=== PATIENT | female | born 1940 | race Two or more races ===

== ENCOUNTER 2018-02-14 14:03 | Inpatient (IN) | payer MEDICARE ==
[2018-02-14 14:11] VITALS: BMI 20.7
[2018-02-14] MEDS ORDERED: oxyCODONE 5 mg Immediate Release Tab PO PRN (20:47)
[2018-02-14] MEDS ORDERED: Benzocaine/Menthol (Cepacol) Lozenge PO PRN (20:47)
[2018-02-15 06:21] LABS: HEMOGLOBIN 11.8 g/dL (12.0-16.0); MEAN CELL VOLUME 96.1 fl (81.0-99.0); MEAN CORPUSCULAR HEMOGLOBIN 31.1 pg (27.0-31.0); MEAN CORPUSCULAR HGB CONC 32.4 g/dL (33.0-37.0); RBC 3.8 Mil/uL (3.80-5.20); RED CELL DISTRIBUTION WIDTH 14.2 % (11.5-14.5); WHITE BLOOD COUNT 4.1 K/uL (4.8-10.8)
[2018-02-15 06:25] LABS: BLOOD UREA NITROGEN 21 mg/dl (7-17); CALCIUM 8.9 mg/dL (8.4-10.2); GFR NON-AFRICAN AMERICAN > 60
[2018-02-15] MEDS: Lidocaine 5% Patch TD SCH (06:42)
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
[2018-02-15] MEDS: Pantoprazole 40 mg EC Tab PO SCH (08:23)
[2018-02-15] MEDS ORDERED: NIFEdipine 30 mg ER Tab PO SCH (09:00)
[2018-02-15] MEDS ORDERED: Enoxaparin 30 mg Syringe SC SCH (09:00)
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
[2018-02-15] MEDS: Enoxaparin 40 mg Syringe SC SCH (12:48)
[2018-02-15] MEDS: POLYETHYLENE GLYCOL 3350 17 GM/Dose PACKET PO SCH (12:49)
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
--- NOTE | 2018-02-15 13:15 | PCM.OPOC ---
Physiatry Overall Plan of Care - Overall Plan of Care Estimated Length of Stay in Weeks: 2 Rehab Impairment: Mobility, Gait, Balance, Coordination Etiologic Diagnosis: Other Rehab/Medical Prognosis: Fair - Anticipated Interventions Physical Therapy:: Yes Occupational Therapy:: Yes Recreational Therapy:: Yes - Therapy Goals Bed Mobility: Independent Ambulation: Supervision Functional Positional Changes:: Independent - Functional Outcomes Functional Outcomes: fair - Discharge Plan Identification of Barriers to Discharge: Home Situation Discharge Destination: Home
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
--- NOTE | 2018-02-15 17:00 | CARD ---
APPROVED REPORT Date of service: 02/15/2018 EKG Measurement Heart [id number] <Conclusion> Sinus rhythm with 1st degree AV block with premature atrial complexes Otherwise normal ECG
[2018-02-16] MEDS: Lidocaine 5% Patch TD SCH (06:57)
[2018-02-16] MEDS: POLYETHYLENE GLYCOL 3350 17 GM/Dose PACKET PO SCH (09:03)
[2018-02-16] MEDS: Enoxaparin 40 mg Syringe SC SCH (09:03)
[2018-02-16] MEDS: Pantoprazole 40 mg EC Tab PO SCH (09:04)
[2018-02-16] MEDS ORDERED: Loratadine 5 MG/5 ML ORAL SYRUP PO ONE (17:30)
[2018-02-17] MEDS: Lidocaine 5% Patch TD SCH (06:33)
[2018-02-17] MEDS: Enoxaparin 40 mg Syringe SC SCH (08:33)
[2018-02-17] MEDS: POLYETHYLENE GLYCOL 3350 17 GM/Dose PACKET PO SCH (08:34)
[2018-02-17] MEDS: Pantoprazole 40 mg EC Tab PO SCH (08:37)
[2018-02-17] MEDS: Loratadine 5 MG/5 ML ORAL SYRUP PO SCH (13:02)
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
[2018-02-18] MEDS: Lidocaine 5% Patch TD SCH (07:00)
[2018-02-18 07:10] LABS: HEMOGLOBIN 11.5 g/dL (12.0-16.0); MEAN CORPUSCULAR HEMOGLOBIN 31.8 pg (27.0-31.0); MEAN CORPUSCULAR HGB CONC 32.8 g/dL (33.0-37.0); RBC 3.63 Mil/uL (3.80-5.20); RED CELL DISTRIBUTION WIDTH 14.2 % (11.5-14.5); WHITE BLOOD COUNT 4.1 K/uL (4.8-10.8)
[2018-02-18 07:22] LABS: BLOOD UREA NITROGEN 16 mg/dl (7-17); CALCIUM 8.9 mg/dL (8.4-10.2); GFR NON-AFRICAN AMERICAN > 60
[2018-02-18] MEDS: Enoxaparin 40 mg Syringe SC SCH (08:41)
[2018-02-18] MEDS: Pantoprazole 40 mg EC Tab PO SCH (08:42)
[2018-02-18] MEDS: POLYETHYLENE GLYCOL 3350 17 GM/Dose PACKET PO SCH (08:42)
[2018-02-18] MEDS: Loratadine 5 MG/5 ML ORAL SYRUP PO SCH ×2 (10:00→10:16)
[2018-02-19] MEDS: Lidocaine 5% Patch TD SCH (06:38)
[2018-02-19] MEDS: Pantoprazole 40 mg EC Tab PO SCH (08:29)
[2018-02-19] MEDS: Loratadine 5 MG/5 ML ORAL SYRUP PO SCH (08:30)
[2018-02-19] MEDS: POLYETHYLENE GLYCOL 3350 17 GM/Dose PACKET PO SCH (08:31)
[2018-02-19] MEDS: Enoxaparin 40 mg Syringe SC SCH (08:31)
--- NOTE | 2018-02-19 20:32 | CP.PCM.PN ---
Subjective - Date & Time of Evaluation Date of Evaluation: 02/17/18 Time of Evaluation: 18:10 - Subjective Subjective: patient with no acute complaints at present Objective - Vital Signs/Intake and Output Vital Signs (last 24 hours): Temp Pulse Resp BP Pulse Ox 97.9 F 66 19 151/100 H 99 02/19/18 09:48 02/19/18 09:48 02/19/18 09:48 02/19/18 09:48 02/19/18 09:48 - Medications Medications: Current Medications Acetaminophen (Tylenol 325mg Tab) 325 mg PO Q4 PRN PRN Reason: Pain, moderate (4-7) Last Admin: 02/19/18 13:34 Dose: 325 mg Acetaminophen (Tylenol 325mg Tab) 650 mg PO Q4 PRN PRN Reason: Pain, severe (8-10) Last Admin: 02/18/18 08:45 Dose: 650 mg Benzocaine/Menthol (Cepacol Sore Throat) 1 wilbert PO Q6 PRN PRN Reason: Sore Throat Calcium Carbonate (Oscal) 1,000 mg PO BID [facility] Last Admin: 02/19/18 17:28 Dose: 1,000 mg Docusate Sodium (Colace) 100 mg PO BID [facility] Last Admin: 02/19/18 17:28 Dose: 100 mg Enoxaparin Sodium (Lovenox) 40 mg SC DAILY [facility]; Protocol Last Admin: 02/19/18 08:31 Dose: 40 mg Lidocaine (Lidoderm) 2 ea TD DAILY@0700 [facility] Last Admin: 02/19/18 06:38 Dose: 2 ea Loratadine (Claritin Oral Soln 1mg/Ml) 10 mg PO DAILY [facility] Last Admin: 02/19/18 08:30 Dose: 10 mg Metoprolol Tartrate (Lopressor) 12.5 mg PO Q12 [facility] Last Admin: 02/19/18 08:29 Dose: 12.5 mg Pantoprazole Sodium (Protonix Ec Tab) 40 mg PO DAILY [facility] Last Admin: 02/19/18 08:29 Dose: 40 mg Polyethylene Glycol (Miralax) 17 gm PO DAILY [facility] Last Admin: 02/19/18 08:31 Dose: Not Given - Labs Labs: 02/18/18 05:30 02/18/18 05:30 - Constitutional Appears: Well - Head Exam Head Exam: ATRAUMATIC, NORMAL INSPECTION, NORMOCEPHALIC - Eye Exam Eye Exam: EOMI, Normal appearance Pupil Exam: NORMAL ACCOMODATION, PERRL - ENT Exam ENT Exam: Mucous Membranes Moist, Normal Exam - Neck Exam Neck Exam: Full ROM, Normal Inspection - Respiratory Exam Respiratory Exam: Clear to Ausculation Bilateral - Cardiovascular Exam Cardiovascular Exam: REGULAR RHYTHM - GI/Abdominal Exam GI & Abdominal Exam: Soft, Normal Bowel Sounds - Rectal Exam Rectal Exam: NORMAL INSPECTION - Exam External exam: NORMAL EXTERNAL EXAM - Extremities Exam Extremities Exam: Full ROM, Normal Capillary Refill, Normal Inspection - Back Exam Back Exam: NORMAL INSPECTION - Neurological Exam Neurological Exam: Alert Neuro motor strength exam: Right Lower Extremity: 3 - Psychiatric Exam Psychiatric exam: Normal Affect, Normal Mood - Skin Skin Exam: Normal Color Assessment and Plan (1) Multiple fracture Assessment & Plan: plan to continue with physical, rec and occupational therapy program. Status: Acute
[2018-02-20] MEDS: Lidocaine 5% Patch TD SCH (06:43)
[2018-02-20] MEDS: Loratadine 5 MG/5 ML ORAL SYRUP PO SCH (07:58)
[2018-02-20] MEDS: POLYETHYLENE GLYCOL 3350 17 GM/Dose PACKET PO SCH (08:00)
[2018-02-20] MEDS: Enoxaparin 40 mg Syringe SC SCH (08:00)
[2018-02-20] MEDS: Pantoprazole 40 mg EC Tab PO SCH (08:01)
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
[2018-02-21] MEDS: Lidocaine 5% Patch TD SCH (06:19)
[2018-02-21 06:44] LABS: HEMOGLOBIN 12.4 g/dL (12.0-16.0); MEAN CELL VOLUME 98.4 fl (81.0-99.0); MEAN CORPUSCULAR HEMOGLOBIN 32.3 pg (27.0-31.0); MEAN CORPUSCULAR HGB CONC 32.9 g/dL (33.0-37.0); RBC 3.84 Mil/uL (3.80-5.20); RED CELL DISTRIBUTION WIDTH 14.7 % (11.5-14.5); WHITE BLOOD COUNT 3.9 K/uL (4.8-10.8)
[2018-02-21 06:47] LABS: BLOOD UREA NITROGEN 17 mg/dl (7-17); CALCIUM 9.1 mg/dL (8.4-10.2); GFR NON-AFRICAN AMERICAN > 60
[2018-02-21] MEDS: Enoxaparin 40 mg Syringe SC SCH (08:41)
[2018-02-21] MEDS: Loratadine 5 MG/5 ML ORAL SYRUP PO SCH (08:41)
[2018-02-21] MEDS: Pantoprazole 40 mg EC Tab PO SCH (08:44)
[2018-02-21] MEDS: POLYETHYLENE GLYCOL 3350 17 GM/Dose PACKET PO SCH (08:44)
[2018-02-22] MEDS ORDERED: Alum-Mag Hydrox-Simethicone Susp (30 mL) PO ONE (06:19)
[2018-02-22] MEDS: Lidocaine 5% Patch TD SCH ×2 (07:37→08:13)
[2018-02-22] MEDS: Pantoprazole 40 mg EC Tab PO SCH (08:10)
[2018-02-22] MEDS: Enoxaparin 40 mg Syringe SC SCH (08:12)
[2018-02-22] MEDS: Loratadine 5 MG/5 ML ORAL SYRUP PO SCH (08:15)
[2018-02-22] MEDS: POLYETHYLENE GLYCOL 3350 17 GM/Dose PACKET PO SCH (08:23)
--- NOTE | 2018-02-22 11:04 | CP.PCM.PN ---
Subjective - Date & Time of Evaluation Date of Evaluation: 02/22/18 Time of Evaluation: 11:00 - Subjective Subjective: patient claims she is feeling better, less swelling Objective - Vital Signs/Intake and Output Vital Signs (last 24 hours): Temp Pulse Resp BP Pulse Ox 97.1 F L 94 H 19 138/96 H 97 02/22/18 08:23 02/22/18 09:42 02/22/18 08:23 02/22/18 09:42 02/22/18 08:23 - Medications Medications: Current Medications Acetaminophen (Tylenol 325mg Tab) 325 mg PO Q4 PRN PRN Reason: Pain, moderate (4-7) Last Admin: 02/21/18 20:53 Dose: 325 mg Acetaminophen (Tylenol 325mg Tab) 650 mg PO Q4 PRN PRN Reason: Pain, severe (8-10) Last Admin: 02/18/18 08:45 Dose: 650 mg Benzocaine/Menthol (Cepacol Sore Throat) 1 wilbert PO Q6 PRN PRN Reason: Sore Throat Calcium Carbonate (Oscal) 1,000 mg PO BID [facility] Last Admin: 02/22/18 08:11 Dose: 1,000 mg Docusate Sodium (Colace) 100 mg PO BID [facility] Last Admin: 02/22/18 08:12 Dose: 100 mg Lidocaine (Lidoderm) 2 ea TD DAILY@0700 [facility] Last Admin: 02/22/18 07:37 Dose: 2 ea Loratadine (Claritin Oral Soln 1mg/Ml) 10 mg PO DAILY [facility] Last Admin: 02/22/18 08:15 Dose: 10 mg Metoprolol Tartrate (Lopressor) 12.5 mg PO Q12 [facility] Last Admin: 02/22/18 08:10 Dose: 12.5 mg Pantoprazole Sodium (Protonix Ec Tab) 40 mg PO DAILY [facility] Last Admin: 02/22/18 08:10 Dose: 40 mg Polyethylene Glycol (Miralax) 17 gm PO DAILY [facility] Last Admin: 02/22/18 08:23 Dose: Not Given - Labs Labs: 02/21/18 06:25 02/21/18 06:25 - Constitutional Appears: Well - Head Exam Head Exam: ATRAUMATIC, NORMAL INSPECTION, NORMOCEPHALIC - Eye Exam Eye Exam: EOMI, Normal appearance, PERRL Pupil Exam: NORMAL ACCOMODATION - ENT Exam ENT Exam: Mucous Membranes Moist, Normal Exam - Neck Exam Neck Exam: Full ROM, Normal Inspection - Respiratory Exam Respiratory Exam: Clear to Ausculation Bilateral, NORMAL BREATHING PATTERN - Cardiovascular Exam Cardiovascular Exam: REGULAR RHYTHM - GI/Abdominal Exam GI & Abdominal Exam: Soft, Normal Bowel Sounds - Rectal Exam Rectal Exam: NORMAL INSPECTION - Exam External exam: NORMAL EXTERNAL EXAM - Extremities Exam Extremities Exam: Full ROM, Normal Capillary Refill - Back Exam Back Exam: NORMAL INSPECTION - Neurological Exam Neurological Exam: Alert, Awake Neuro motor strength exam: Right Lower Extremity: 3 (right leg with short leg cast) - Psychiatric Exam Psychiatric exam: Normal Affect, Normal Mood - Skin Skin Exam: Dry, Intact, Normal Color Assessment and Plan (1) Multiple fracture Assessment & Plan: plan to continue with physical, occupational therapy, rec therapy for team conference for today Status: Acute
--- NOTE | 2018-02-22 11:08 | CP.PCM.PN ---
Subjective - Date & Time of Evaluation Date of Evaluation: 02/21/18 Time of Evaluation: 20:00 - Subjective Subjective: no acute complaints of back or leg pain Objective - Vital Signs/Intake and Output Vital Signs (last 24 hours): Temp Pulse Resp BP Pulse Ox 97.1 F L 94 H 19 138/96 H 97 02/22/18 08:23 02/22/18 09:42 02/22/18 08:23 02/22/18 09:42 02/22/18 08:23 - Medications Medications: Current Medications Acetaminophen (Tylenol 325mg Tab) 325 mg PO Q4 PRN PRN Reason: Pain, moderate (4-7) Last Admin: 02/21/18 20:53 Dose: 325 mg Acetaminophen (Tylenol 325mg Tab) 650 mg PO Q4 PRN PRN Reason: Pain, severe (8-10) Last Admin: 02/18/18 08:45 Dose: 650 mg Benzocaine/Menthol (Cepacol Sore Throat) 1 wilbert PO Q6 PRN PRN Reason: Sore Throat Calcium Carbonate (Oscal) 1,000 mg PO BID [facility] Last Admin: 02/22/18 08:11 Dose: 1,000 mg Docusate Sodium (Colace) 100 mg PO BID [facility] Last Admin: 02/22/18 08:12 Dose: 100 mg Lidocaine (Lidoderm) 2 ea TD DAILY@0700 [facility] Last Admin: 02/22/18 07:37 Dose: 2 ea Loratadine (Claritin Oral Soln 1mg/Ml) 10 mg PO DAILY [facility] Last Admin: 02/22/18 08:15 Dose: 10 mg Metoprolol Tartrate (Lopressor) 12.5 mg PO Q12 [facility] Last Admin: 02/22/18 08:10 Dose: 12.5 mg Pantoprazole Sodium (Protonix Ec Tab) 40 mg PO DAILY [facility] Last Admin: 02/22/18 08:10 Dose: 40 mg Polyethylene Glycol (Miralax) 17 gm PO DAILY [facility] Last Admin: 02/22/18 08:23 Dose: Not Given - Labs Labs: 02/21/18 06:25 02/21/18 06:25 - Constitutional Appears: Well - Head Exam Head Exam: ATRAUMATIC, NORMAL INSPECTION, NORMOCEPHALIC - Eye Exam Eye Exam: EOMI, Normal appearance, PERRL Pupil Exam: NORMAL ACCOMODATION, PERRL - ENT Exam ENT Exam: Mucous Membranes Moist, Normal Exam - Neck Exam Neck Exam: Full ROM, Normal Inspection - Respiratory Exam Respiratory Exam: Clear to Ausculation Bilateral, NORMAL BREATHING PATTERN - Cardiovascular Exam Cardiovascular Exam: REGULAR RHYTHM - GI/Abdominal Exam GI & Abdominal Exam: Soft, Normal Bowel Sounds - Rectal Exam Rectal Exam: NORMAL INSPECTION - Exam External exam: NORMAL EXTERNAL EXAM - Extremities Exam Extremities Exam: Full ROM, Normal Capillary Refill, Normal Inspection - Back Exam Back Exam: NORMAL INSPECTION - Neurological Exam Neurological Exam: Alert, Awake Neuro motor strength exam: Right Lower Extremity: 3 (short leg cast) - Psychiatric Exam Psychiatric exam: Normal Affect, Normal Mood - Skin Skin Exam: Dry, Intact, Normal Color Assessment and Plan (1) Multiple fracture Assessment & Plan: multiple fractures, short leg cast bruising and swelling decreasing, plan for physical, occupational therapy for range of motion, strengthening, transfers and gait training Status: Acute
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
[2018-02-23] MEDS: Lidocaine 5% Patch TD SCH (06:12)
[2018-02-23] MEDS: Loratadine 5 MG/5 ML ORAL SYRUP PO SCH (08:11)
[2018-02-23] MEDS: Enoxaparin 40 mg Syringe SC SCH (08:12)
[2018-02-23] MEDS: POLYETHYLENE GLYCOL 3350 17 GM/Dose PACKET PO SCH (08:13)
[2018-02-23] MEDS: Pantoprazole 40 mg EC Tab PO SCH (08:13)
[2018-02-24] MEDS: Lidocaine 5% Patch TD SCH (06:48)
[2018-02-24 08:20] VITALS: BP 141/79; PULSE 48; RESP 18; TEMP 96.8; O2SAT 99
[2018-02-24] MEDS: Loratadine 5 MG/5 ML ORAL SYRUP PO SCH ×2 (08:21→08:29)
[2018-02-24] MEDS: Pantoprazole 40 mg EC Tab PO SCH (08:23)
[2018-02-24] MEDS: Enoxaparin 40 mg Syringe SC SCH (08:24)
[2018-02-24] MEDS: POLYETHYLENE GLYCOL 3350 17 GM/Dose PACKET PO SCH (08:25)
[2018-02-24 08:38] LABS: HEMOGLOBIN 12.2 g/dL (12.0-16.0); MEAN CELL VOLUME 96.5 fl (81.0-99.0); MEAN CORPUSCULAR HEMOGLOBIN 31.3 pg (27.0-31.0); MEAN CORPUSCULAR HGB CONC 32.4 g/dL (33.0-37.0); RBC 3.9 Mil/uL (3.80-5.20); RED CELL DISTRIBUTION WIDTH 14.9 % (11.5-14.5); WHITE BLOOD COUNT 2.9 K/uL (4.8-10.8)
[2018-02-24 08:48] LABS: BLOOD UREA NITROGEN 17 mg/dl (7-17); CALCIUM 9.2 mg/dL (8.4-10.2); GFR NON-AFRICAN AMERICAN > 60
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
--- NOTE | 2018-02-24 15:20 | CP.PCM.PN ---
Subjective - Date & Time of Evaluation Date of Evaluation: 02/23/18 Time of Evaluation: 20:00 - Subjective Subjective: no acute complaints at present Objective - Vital Signs/Intake and Output Vital Signs (last 24 hours): Temp Pulse Resp BP Pulse Ox 96.8 F L 48 L 18 141/79 99 02/24/18 08:18 02/24/18 08:25 02/24/18 08:18 02/24/18 08:25 02/24/18 08:18 - Labs Labs: 02/24/18 08:32 02/24/18 08:32 - Constitutional Appears: Well - Head Exam Head Exam: ATRAUMATIC, NORMAL INSPECTION, NORMOCEPHALIC - Eye Exam Eye Exam: EOMI, Normal appearance, PERRL Pupil Exam: NORMAL ACCOMODATION - ENT Exam ENT Exam: Mucous Membranes Moist, Normal Exam - Neck Exam Neck Exam: Full ROM, Normal Inspection - Respiratory Exam Respiratory Exam: NORMAL BREATHING PATTERN - Cardiovascular Exam Cardiovascular Exam: REGULAR RHYTHM - GI/Abdominal Exam GI & Abdominal Exam: Soft, Normal Bowel Sounds - Rectal Exam Rectal Exam: NORMAL INSPECTION - Exam External exam: NORMAL EXTERNAL EXAM - Extremities Exam Extremities Exam: Full ROM, Normal Capillary Refill, Normal Inspection - Back Exam Back Exam: NORMAL INSPECTION - Neurological Exam Neurological Exam: Alert, Awake Neuro motor strength exam: Right Lower Extremity: 3 - Psychiatric Exam Psychiatric exam: Normal Affect, Normal Mood - Skin Skin Exam: Dry, Intact Assessment and Plan (1) Multiple fracture Assessment & Plan: plan for discharge , continue with physical, occupational, rec therapy equipment eval. Follow up with ortho and PMD after DC. Status: Acute
== END 2018-02-24 13:15 | disposition home or self-care (01) | DRG 561 ==
LOC: EDBD 20:32
PROVIDERS: ADMIT Internal Medicine; ATTEND Internal Medicine
PROC: F07Z9FZ Gait Training/Functional Ambulation Treatment using Assistive, Adaptive, Supportive or Protective Equipment (ICD-10-PCS; principal; 2018-02-14)
PROC: F08Z4FZ Home Management Treatment using Assistive, Adaptive, Supportive or Protective Equipment (ICD-10-PCS; 2018-02-14)
PROC: F07L6FZ Therapeutic Exercise Treatment of Musculoskeletal System - Lower Back / Lower Extremity using Assistive, Adaptive, Supportive or Protective Equipment (ICD-10-PCS; 2018-02-14)
PROC: F07K6FZ Therapeutic Exercise Treatment of Musculoskeletal System - Upper Back / Upper Extremity using Assistive, Adaptive, Supportive or Protective Equipment (ICD-10-PCS; 2018-02-15)
DX: S22.21XD Fracture of manubrium, subsequent encounter for fracture with routine healing (principal); S32.591D Other specified fracture of right pubis, subsequent encounter for fracture with routine healing; S32.491D Other specified fracture of right acetabulum, subsequent encounter for fracture with routine healing; S82.51XD Displaced fracture of medial malleolus of right tibia, subsequent encounter for closed fracture with routine healing; S22.32XD Fracture of one rib, left side, subsequent encounter for fracture with routine healing; S22.31XD Fracture of one rib, right side, subsequent encounter for fracture with routine healing; I10 Essential (primary) hypertension; I48.91 Unspecified atrial fibrillation; K59.00 Constipation, unspecified; V89.2XXD Person injured in unspecified motor-vehicle accident, traffic, subsequent encounter